=== PATIENT | male | born 1955 | race Hispanic/Latino ===

== ENCOUNTER 2017-10-13 06:56 | Inpatient (IN) | payer BC ==
[2017-10-12 12:14] LABS: BASOPHILS # (AUTO) 0.1 (0.0-0.1); BASOPHILS % 0.6 % (0.0-1.0); EOSINOPHILS # (AUTO) 0.2 (0.0-0.4); EOSINOPHILS % 1.8 % (0.0-6.0); LYMPHOCYTES # (AUTO) 2.2 (1.0-3.2); LYMPHOCYTES % 25.4 % (18.0-39.1); MEAN CORPUSCULAR HEMOGLOBIN 31.2 pg (28-32); MEAN CORPUSCULAR HGB CONC 35.9 g/dL (31-35); MEAN CORPUSCULAR VOLUME 86.9 fL (81-99); MONOCYTES # (AUTO) 0.9 (0.2-0.8); MONOCYTES % 9.9 % (4.4-11.3); NEUTROPHILS # (AUTO) 5.3 (2.1-6.9); NEUTROPHILS % 61.8 % (38.7-80.0); PLATELET COUNT 299 x10e3/uL (140-360); RED BLOOD COUNT 4.49 x10e6/uL (4.3-5.7); RED CELL DISTRIBUTION WIDTH 12.1 % (11.7-14.4)
[2017-10-12 12:28] LABS: ANION GAP 11.2 mmol/L (8-16); CALCIUM 9.8 mg/dL (8.4-10.2); CREATININE, SERUM 1.33 mg/dL (0.72-1.25); POTASSIUM 4.2 mmol/L (3.5-5.1)
[~2017-10-13] VITALS: Ht 172.7 cm; Wt 99.8 kg
[~2017-10-13 06:56] MED LIST: AMLODIPINE BESY10 MG PO; CLONIDINE HCL0.2 MG PO; ELIQUIS PO; FUROSEMIDE40 MG PO; GLYBURIDE-METF1 EACH PO; ISOSORBIDE MONO30 MG PO; LOSARTAN POTAS100 MG PO; SPIRONOLACTONE25 MG PO
[2017-10-13] MEDS ORDERED: MUPIROCIN 2% OINT 22 GM TUBE ONE (07:19)
[2017-10-13] MEDS ORDERED: BACITRACIN 50,000 UNIT VIAL ONE (07:19)
[2017-10-13] MEDS ORDERED: TRANEXAMIC ACID 1,000 MG/10 ML ML ONE (07:19)
[2017-10-13] MEDS ORDERED: CEFAZOLIN SOD 2 GM/D5W 50ML 50 ML IV ONE (07:29)
[2017-10-13] MEDS ORDERED: DEXAMETHASONE SOD PHOS 10 MG/1 ML VIAL ONE (07:33)
[2017-10-13] MEDS ORDERED: CELECOXIB 200 MG CAP ONE (07:33)
[2017-10-13] MEDS ORDERED: GABAPENTIN 300 MG CAP ONE (07:34)
[2017-10-13] MEDS ORDERED: INSULIN REGULAR, HUMAN 100 UNIT/1 ML 3ML VIAL ONE (07:46)
[2017-10-13] MEDS ORDERED: ROPIVACAINE 246.25 MG, EPINEPHRINE HCL 1:1000 0.5 MG, CLONIDINE HCL 0.08 MG, KETOROLAC ... INJ ONE ×5 (08:00)
[2017-10-13] MEDS ORDERED: ACETAMINOPHEN 1000 MG/100 ML 100 ML IV ONE (10:13)
[2017-10-13] MEDS: SODIUM CHLORIDE 0.9% 1000ML 1,000 ML IV SCH ×2 (11:21→21:21)
[2017-10-13] MEDS ORDERED: KETOROLAC TROMETHAMINE 30 MG/ML VIAL IV PRN (11:30)
[2017-10-13] MEDS ORDERED: ONDANSETRON HCL INJ 2 MG/ML VIAL IV PRN (11:30)
[2017-10-13] MEDS ORDERED: HYDROCODONE/APAP 7.5MG-325MG 1 EA TAB PO PRN (11:30)
[2017-10-13] MEDS ORDERED: DOCUSATE SODIUM 100 MG CAP PO PRN (11:30)
[2017-10-13] MEDS ORDERED: DIPHENHYDRAMINE HCL INJ 50 MG/ML VIAL IM/IV PRN (11:30)
[2017-10-13] MEDS ORDERED: HYDROCODONE/APAP 5MG-325MG TAB PO PRN (11:30)
[2017-10-13] MEDS ORDERED: ACETAMINOPHEN 650 MG SUPP PR PRN (11:30)
[2017-10-13] MEDS ORDERED: PROMETHAZINE HCL (IM) 25 MG/ML VIAL INJ PRN (11:30)
[2017-10-13] MEDS ORDERED: ZOLPIDEM TARTRATE 5 MG TAB PO PRN (11:30)
[2017-10-13] MEDS ORDERED: ONDANSETRON HCL 4 MG ORAL DISINTEGRATING TAB SL PRN (11:45)
[2017-10-13] MEDS: ACETAMINOPHEN 1000 MG/100 ML IV SCH ×2 (12:00→17:58)
--- NOTE | 2017-10-13 12:50 | Diagnostic Imaging Report ---
PROCEDURE: X-RAY LEFT KNEE, ONE OR TWO VIEWS COMPARISON: None. INDICATIONS:POST OP KNEE FINDINGS: See conclusion. CONCLUSION: Status post total left knee replacement with surrounding soft tissue swelling, air and donita consistent with recent surgery. No acute fractures. Satisfactory alignment. Carlos Pryor M.D. Dictated by: Carlos Pryor M.D. on 10/13/2017 at 12:52 Electronically approved by: Carlos Pryor M.D. on 10/13/2017 at 12:52
[2017-10-13 13:13] VITALS: BP 131/60
[2017-10-13 13:23] VITALS: BP 146/62
[2017-10-13 13:26] VITALS: BP 146/62
[2017-10-13] MEDS ORDERED: CEFAZOLIN SOD 1 GM/NS 50ML 50 ML IV SCH (14:00)
--- NOTE | 2017-10-13 14:12 | Operative Report ---
DATE OF PROCEDURE: October 13, 2017 [employer]DEL [employer]KER: Josesito Poon PA-C The patient was brought to the operating room for induction of anesthesia. Throughout this case, my PA's assistance was necessary for retraction of soft tissue and positioning of the extremity. This allows for efficient and technically successful execution of the operation and is considered medically necessary. PREOPERATIVE DIAGNOSIS: Osteoarthritis left knee. POSTOPERATIVE DIAGNOSIS: Osteoarthritis left knee. PROCEDURE: Left total knee arthroplasty. INDICATIONS: The patient is a 62-year-old gentleman who has severe arthritis in his left knee. He has failed extensive conservative management and would like to proceed with a left total knee replacement. The risks and benefits, the implants and the hospital stay have all been discussed. The importance of physical therapy has been stressed. He states he understands and wishes to proceed. DESCRIPTION OF PROCEDURE: The patient was brought to the operating room and placed under general anesthetic. He received tranexamic acid, prophylactic antibiotics and a regional block in the holding area. His left lower extremity was prepped and draped in a sterile manner. A preoperative time out was performed. The extremity was exsanguinated, and a proximal tourniquet was inflated to 300 mmHg. An anterior approach with a medial parapatellar arthrotomy was performed. Soft-tissue releases were performed to bring the knee up into flexion with the patella everted. The knee was very stiff. The preoperative range of motion was roughly negative 5 degrees to 90 degrees. Posterior osteophytes were freed to allow deep flexion. The cruciate ligaments were sacrificed. A V[employer]quez [employer]hew Mila II posterior stabilized knee system was used throughout the case. An extramedullary cutting guide was used to resect the proximal tibia. This was done after meniscal remnants and marginal osteophytes had been removed. A +2 mm cut was made due to the limited motion. The tibial baseplate was a size number 7. The central fin punch was impacted, and attention was directed towards the distal femur. An intramedullary cutting guide was used to resect the distal femur in 6 degrees of valgus and rotation referencing off of a combination of landmarks including Estelline's line, the epicondylar axis and the posterior condyles. The femoral component was also a size number 7. The anterior and posterior cuts were made. Attention was directed towards the posterior compartment. A large posterior osteophyte was carefully removed. Trial reductions were then performed. An 11 mm ultracongruent tibial insert provided optimal soft-tissue balancing in both flexion and extension. The patella was resurfaced with a 32 mm x 9 mm patellar button. The thickness was checked before and after and was right around 25 mm. Patellar tracking was noted to be concentric. The trial implants were then removed. A 100 mL premixed pericapsular KAMRYN injection was placed into the surrounding soft tissue. The knee was then thoroughly irrigated with a shower-tip pulsatile lavage. The components were cemented into place using a single mix of Palacos cement pre-loaded with gentamicin. Care was taken to remove extravasated cement. The wound was further irrigated while the cement cured. The arthrotomy was then closed with interrupted number 1 Ethibond. The knee was put through flexion and extension to ensure a secure closure. The skin was closed with subcuticular Vicryl and donita. A sterile bandage was applied. The patient was extubated and transported to the recovery room in stable condition. Job#: [id number] [employer]
[2017-10-13] MEDS ORDERED: LIDOCAINE 2%/ EPINEPHRINE 20ML MDV ONE (14:43)
[2017-10-13] MEDS ORDERED: ROPIVACAINE 0.5% 5 MG/ML 30 ML SDV ONE (14:43)
[2017-10-13] MEDS: APIXABAN 5 MG TABLET PO SCH (15:22)
[2017-10-13 16:26] VITALS: BP 123/58
[2017-10-13] MEDS: CELECOXIB 200 MG CAP PO SCH (17:00)
[2017-10-13] MEDS: ASPIRIN 325 MG TAB PO SCH (17:00)
[2017-10-13] MEDS: METFORMIN HCL 500 MG TAB PO SCH (17:00)
[2017-10-13] MEDS ORDERED: CELECOXIB 100 MG CAP PO SCH (17:00)
[2017-10-13] MEDS: CEFAZOLIN SOD 1 GM VIAL IV SCH (17:00)
[2017-10-13] MEDS: GLYBURIDE 2.5 MG TAB PO SCH (17:00)
[2017-10-13] MEDS ORDERED: KETOROLAC TROMETHAMINE 30 MG/ML VIAL ONE (18:34)
[2017-10-13] MEDS ORDERED: GLYCOPYRROLATE INJ 1MG/ 5 ML SYR ONE (18:34)
[2017-10-13] MEDS ORDERED: SEVOFLURANE INHAL SOLN 250 ML PEN BTL ONE (18:34)
[2017-10-13] MEDS ORDERED: ACETAMINOPHEN 1000 MG/100 ML IV ONE (18:34)
[2017-10-13] MEDS ORDERED: ONDANSETRON HCL INJ 2 MG/ML VIAL ONE (18:34)
[2017-10-13] MEDS ORDERED: KETAMINE HCL INJ 50 MG/ML 10 ML VIAL ONE (19:35)
[2017-10-13] MEDS ORDERED: FENTANYL CITRATE/PF 100MCG/2 ML INJ ONE (19:35)
[2017-10-13] MEDS ORDERED: MIDAZOLAM HCL 2 MG/2 ML VIAL ONE (19:35)
[2017-10-13 20:00] VITALS: BP 119/58
[2017-10-13] MEDS ORDERED: CLONIDINE HCL 0.2 MG TAB PO SCH (21:00)
[2017-10-14] VITALS: BP 107/74
[2017-10-14] MEDS: ACETAMINOPHEN 1000 MG/100 ML IV SCH ×2 (00:24→06:00)
[2017-10-14] MEDS: CEFAZOLIN SOD 1 GM VIAL IV SCH ×2 (01:03→09:00)
[2017-10-14 04:00] VITALS: BP 137/60
[2017-10-14 07:00] LABS: HEMATOCRIT 32.8 % (38.2-49.6); HEMOGLOBIN 11.5 g/dL (14.0-18.0)
[2017-10-14 08:05] VITALS: BP 124/69
[2017-10-14 08:40] VITALS: BP 124/69
[2017-10-14] MEDS ORDERED: LOSARTAN POTASSIUM 100 MG TAB PO SCH (09:00)
[2017-10-14] MEDS ORDERED: AMLODIPINE BESYLATE 10 MG TAB PO SCH (09:00)
[2017-10-14] MEDS ORDERED: ISOSORBIDE MONONITRATE 30 MG TAB CR PO SCH (09:00)
[2017-10-14] MEDS: GLYBURIDE 2.5 MG TAB PO SCH ×3 (09:00→16:00)
[2017-10-14] MEDS: APIXABAN 5 MG TABLET PO SCH ×2 (09:00→16:00)
[2017-10-14] MEDS: METFORMIN HCL 500 MG TAB PO SCH ×3 (09:00→16:00)
[2017-10-14] MEDS ORDERED: FUROSEMIDE 40 MG TAB PO SCH (09:00)
[2017-10-14] MEDS: ASPIRIN 325 MG TAB PO SCH ×2 (09:00→16:00)
[2017-10-14] MEDS: SODIUM CHLORIDE 0.9% 1000ML 1,000 ML IV SCH (09:00)
[2017-10-14] MEDS ORDERED: SPIRONOLACTONE 25 MG TAB PO SCH (09:00)
[2017-10-14] MEDS: CELECOXIB 200 MG CAP PO SCH ×2 (09:12→16:00)
[2017-10-14] MEDS ORDERED: ACETAMINOPHEN 1000 MG/100 ML IV PRN (11:30)
[2017-10-14 14:02] VITALS: BP 154/73
[2017-10-14] MEDS ORDERED: NORCO 7.5-3251 EACH PO (15:19)
== END 2017-10-14 16:09 | disposition home or self-care (01) | DRG 470 ==
LOC: OR 06:56 → MED/SURG 12:25
PROVIDERS: ADMIT Specialist; ATTEND Specialist
PROC: 0SRD0J9 Replacement of Left Knee Joint with Synthetic Substitute, Cemented, Open Approach (ICD-10-PCS; principal; 2017-10-13 09:00)
DX: M17.12 Unilateral primary osteoarthritis, left knee (principal); E11.9 Type 2 diabetes mellitus without complications; I10 Essential (primary) hypertension; Z80.9 Family history of malignant neoplasm, unspecified; Z83.3 Family history of diabetes mellitus; Z82.49 Family history of ischemic heart disease and other diseases of the circulatory system; Z82.3 Family history of stroke; D64.9 Anemia, unspecified; I25.10 Atherosclerotic heart disease of native coronary artery without angina pectoris; Z79.84 Long term (current) use of oral hypoglycemic drugs
CPT/HCPCS: 36415; 80048; 82948; 83036; 85014; 85018; 85025; 86850; 86900; 86920; 97139; C1713; J0171; J0690; J1100; J1885; J2001; J2250; J2405; J2795; J7030